=== PATIENT | male | born 1985 | race African-American/Black ===

== ENCOUNTER 2023-08-22 06:50 | Emergency (ER) | payer SELFPAY ==
[~2023-08-22] VITALS: Ht 190.5 cm; Wt 75.0 kg
[2023-08-22 07:03] VITALS: O2SAT 100
[2023-08-22] MEDS ORDERED: IBUP-2029 MT (09:34)
[2023-08-22 10:21] VITALS: BP 130/89; PULSE 82; RESP 18; TEMP 98.1
== END 2023-08-22 10:20 ==
LOC: ER 06:50
DX: S62.305A Unspecified fracture of fourth metacarpal bone, left hand, initial encounter for closed fracture (principal); W18.39XA Other fall on same level, initial encounter; Y93.89 Activity, other specified; Y92.89 Other specified places as the place of occurrence of the external cause; Y99.8 Other external cause status
CPT/HCPCS: 29125; 73120; 99283